=== PATIENT | male | born 1965 | race African-American/Black ===

== ENCOUNTER 2016-07-31 08:35 | Emergency (ER) | payer BC ==
[~2016-07-31] VITALS: Ht 177.8 cm; Wt 86.2 kg
[2016-07-31] MEDS ORDERED: OXYCODONE/APAP 7.5/325 TABLET. PO ONE (09:00)
[2016-07-31] MEDS ORDERED: NAPROXEN 250 MG TABLET PO ONE (09:00)
[2016-07-31] MEDS ORDERED: PENICILLIN V K 250 MG TABLET. PO ONE (09:00)
[2016-07-31] MEDS ORDERED: OXYC-323 PO (09:12)
[2016-07-31] MEDS ORDERED: PENI500T PO (09:12)
[2016-07-31] MEDS ORDERED: NAPR250T2 PO (09:12)
[2016-07-31 09:21] VITALS: BP 132/75
--- NOTE | 2016-07-31 09:54 | ED.ADGEN ---
Past Medical History Past Medical History: No Pertinent History Past Surgical History: Other Additional Past Surgical Histo: right benji femur, left foot pain Alcohol Use: Heavy Drug Use: None Adult General Chief Complaint Chief Complaint: DENTAL PROBLEM HPI HPI Patient is a 51 year old man, with a complaint of left upper jaw pain for the past several days, with development of left-sided facial swelling yesterday and headache today. Patient denies any fevers or chills, any nausea or vomiting, difficulty swallowing or breathing, denies any drainage or bad taste in his mouth. He states that he took Tylenol at home last night, has had no antipyretics or other medications for pain in the past 8 hours. No weakness numbness or tingling, no vision changes, no pain with eye motions, no ear pain. No upper respiratory type symptoms. States that his tetanus status is up-to- date. He did have his wisdom teeth removed. No chest pain, shortness of breath, no nausea or vomiting, no injuries or other complaints. Review of Systems Review of Systems Constitutional: Denies fever or chills. [] Eyes: Denies change in visual acuity. [] HENT: Denies nasal congestion or sore throat. [] Dental pain and swelling. Respiratory: Denies cough or shortness of breath. [] Cardiovascular: Denies chest pain or edema. [] GI: Denies abdominal pain, nausea, vomiting, bloody stools or diarrhea. [] : Denies dysuria. [] Musculoskeletal: Denies back pain or joint pain. [] Integument: Denies rash. [] Neurologic: Denies focal weakness or sensory changes. [] Left-sided headache. Endocrine: Denies polyuria or polydipsia. [] Lymphatic: Denies swollen glands. [] Psychiatric: Denies depression or anxiety. [] Current Medications Current Medications Current Medications Medications (Trade) Dose Ordered Sig/Gabby Start Time Stop Time Status Last Admin Dose Admin Naproxen (Naprosyn) 250 mg 1X ONCE 07/31/16 09:00 07/31/16 09:04 DC 07/31/16 09:09 250 MG Oxycodone/ Acetaminophen (Percocet 7.5/ 325) 1 tab 1X ONCE 07/31/16 09:00 07/31/16 09:04 DC 07/31/16 09:09 1 TAB Penicillin V Potassium (Veetid) 500 mg 1X ONCE 07/31/16 09:00 07/31/16 09:04 DC 07/31/16 09:09 500 MG Allergies Allergies Allergies Coded Allergies Type Severity Reaction Last Updated Verified No Known Drug Allergies 07/31/16 No Physical Exam Physical Exam Constitutional: Well developed, well nourished, no acute distress, non-toxic appearance. [] HENT: Normocephalic, atraumatic, bilateral external ears normal, oropharynx moist, no oral exudates, nose normal. Patient with poor dentition with dental caries throughout, noted to have broken tooth #15, with surrounding soft tissue swelling, no palpable abscess, no evidence of drainage, patient noted to have anterior cervical lymphadenopathy, is expressing tightening of the muscles in the TM region of the left jaw, no other masses other abnormalities identified. No trismus, no brawny edema or swelling of the other mucosa, tongue, or lower jaw involvement, normal phonation. Eyes: PERRLA, EOMI, conjunctiva normal, no discharge. [] Neck: Normal range of motion, no tenderness, supple, no stridor. [] Cardiovascular:Heart rate regular rhythm, no murmur , S1, S2, rubs or gallops. [ ] Lungs & Thorax: Bilateral breath sounds clear to auscultation, no wheezing, rhonchi, rales. No chest tenderness or crepitus. [] Abdomen: Bowel sounds normal, soft, no tenderness, no rebound, rigidity, no guarding, no masses, no pulsatile masses. [] Skin: Warm, dry, no erythema, no rash. [] Back: No tenderness, no CVA tenderness. [] Extremities: No tenderness, no cyanosis, no clubbing, ROM intact, no edema. [] Neurologic: Alert and oriented X 3, normal motor function, normal sensory function, no focal deficits noted. [] Psychologic: Affect normal, judgement normal, mood normal. [] Current Patient Data Vital Signs Vital Signs Date Time Temp Pulse Resp B/P Pulse Ox O2 Delivery O2 Flow Rate FiO2 07/31/16 09:21 68 18 132/75 99 07/31/16 08:48 98.3 Room Air 98.3 EKG EKG Not indicated. [] Radiology/Procedures Radiology/Procedures Not indicated. [] Course & Med Decision Making Course & Med Decision Making Pertinent Labs and Imaging studies reviewed. (See chart for details) Patient's examination is consistent with a dental infection of the left upper jaw, there is no palpable abscess, or area amenable to drainage. Patient does not have any evidence of compromise or impending compromise of the airway or the lower jaw. He has full range of motion of the mouth, no evidence of other areas infection, is afebrile and well-appearing. There is no cellulitis or soft tissue inflammation, patient has palpable lymphadenopathy of the anterior cervical chain, and tightening with some spasm of the muscles of the mastoid. No temporal tenderness. Discussed with patient did require definitive management with oral surgery for removal of this infected tooth, at this time will start him on penicillin VK, Percocet, and naproxen. Patient states understanding with importance of follow-up, given first dose of medications in the ED without issue, as he did not drive to the ED, family member was able to drive him home. He doesn't dental insurance, was given contact information for Dr. Cheema of oral maxillofacial surgery, also given list of available clinic and dental resources in case she has difficulty following up with Dr. Cheema. Patient voiced understanding and agreement with concerning symptoms that would prompt return, and with follow-up plans as stated, discharged home in stable condition having tolerated his oral medications, with prescriptions as stated. Dragon Disclaimer Dragon Disclaimer This electronic medical record was generated, in whole or in part, using a voice recognition dictation system. Departure Impression: Primary Impression: Dental abscess Disposition: HOME, SELF-CARE Condition: IMPROVED Scripts Penicillin V Potassium 500 Mg Tablet1 Tab PO QID #39 TAB One tablet by mouth 4 times daily for the next 10 days, first dose given in the emergency department. Prov:MARIA ISABEL STEVENSON DO 07/31/16 Oxycodone/Apap 5-325 (Percocet 5-325 Mg Tablet)1 Each Tablet1 Tab PO PRN Q6HRS PRN PAIN #14 TAB Ref 0 Prov:MARIA ISABEL STEVENSON DO 07/31/16 Naproxen 250 Mg [id number] Mg PO BID PRN PAIN #10 Prov:MARIA ISABEL STEVENSON DO 07/31/16 MARIA ISABEL STEVENSON DO Jul 31, 2016 09:54
== END 2016-07-31 09:22 | disposition home or self-care (01) ==
LOC: ER 08:35
DX: K04.7 Periapical abscess without sinus (principal); F10.20 Alcohol dependence, uncomplicated
CPT/HCPCS: 99284

== ENCOUNTER 2017-11-14 14:57 | Emergency (ER) | payer SELFPAY, BC | END 2017-11-14 15:42 | disposition home or self-care (01) | LOC: ER 14:57 | DX: H66.91 Otitis media, unspecified, right ear (principal) | CPT/HCPCS: 99283 ==

== ENCOUNTER 2018-06-20 10:06 | Emergency (ER) | payer BC ==
[~2018-06-20] VITALS: Ht 177.8 cm; Wt 88.5 kg
[~2018-06-20 10:06] MED LIST: AMOX875T PO; NAPR250T6 PO; OXYC1TAB15 PO; PENI500T PO
[2018-06-20 10:36] VITALS: BP 119/78
--- NOTE | 2018-06-20 11:35 | RAD ---
Indications: Back pain after bending over to tie shoes. Three-view lumbar spine series: No acute compression fracture or discitis or osteolytic process or anterolisthesis is evident. There is mild degenerative endplate spurring without significant disc space narrowing throughout the lumbar spine. Three-view thoracic spine series: No compression fracture discitis or osteolytic process is evident. IMPRESSION: No acute compression fracture. There is a left midlung zone nodule measuring 2.2 cm in size. It is unchanged in size from a previous chest x-ray dated May 09, 2012 consistent with a benign finding such as a granuloma. Electronically signed by: Jonny Angulo MD (06/20/2018 11:31 AM) [facility]
--- NOTE | 2018-06-20 12:12 | PHYS DOC ---
Past Medical History Past Medical History: No Pertinent History Past Surgical History: Other Additional Past Surgical Histo: right benji femur, left foot pain Alcohol Use: Heavy Drug Use: None Adult General Chief Complaint Chief Complaint: BACK PAIN - NO INJURY [facility] HPI Patient is a 53 year old male who presents with an exacerbation of his chronic back pain 2 days. The patient denies any new injury. He denies dysuria. He states that he has had long-standing back pain. He has not tried over-the- counter medications for this pain. He denies radiation of the pain or paresthesias. He denies spontaneous loss of bowel or bladder, saddle numbness or foot drop. Review of Systems Review of Systems Constitutional: Denies fever or chills [] Respiratory: Denies cough or shortness of breath [] Cardiovascular: No additional information not addressed in HPI [] GI: Denies abdominal pain, nausea, vomiting, bloody stools or diarrhea [] : Denies dysuria or hematuria [] Musculoskeletal: See history of present illness Integument: Denies rash or skin lesions [] Neurologic: Denies headache, focal weakness or sensory changes [] Endocrine: Denies polyuria or polydipsia [] All other systems were reviewed and found to be within normal limits, except as documented in this note. Allergies Allergies Allergies Coded Allergies Type Severity Reaction Last Updated Verified No Known Drug Allergies 07/31/16 No Physical Exam Physical Exam Constitutional: Well developed, well nourished, no acute distress, non-toxic appearance. [] Cardiovascular:Heart rate regular rhythm, no murmur [] Lungs & Thorax: Bilateral breath sounds clear to auscultation [] Abdomen: Bowel sounds normal, soft, no tenderness, no masses, no pulsatile masses. [] Skin: Warm, dry, no erythema, no rash. [] Back: No point spinal tenderness, no CVA tenderness. [] Extremities: No tenderness, no cyanosis, no clubbing, ROM intact, no edema. [] Neurologic: Alert and oriented X 3, normal motor function, normal sensory function, no focal deficits noted. [] Psychologic: Affect normal, judgement normal, mood normal. [] Current Patient Data Vital Signs Vital Signs Date Time Temp Pulse Resp B/P (MAP) Pulse Ox O2 Delivery O2 Flow Rate FiO2 06/20/18 10:36 97.9 67 20 119/78 (92) 98 Room Air 97.9 EKG EKG [] Radiology/Procedures Radiology/Procedures []PATIENT: PERRY BRARACCOUNT: [id number]#: [id number] : 1965 LOCATION: ER AGE: 53 SEX: M EXAM STATUS: REG ER ORD. PHYSICIAN: WAN LU APRN REASON: pain after bending over PROCEDURE: LUMBAR SPINE 2-3V Indications: Back pain after bending over to tie shoes. Three-view lumbar spine series: No acute compression fracture or discitis or osteolytic process or anterolisthesis is evident. There is mild degenerative endplate spurring without significant disc space narrowing throughout the lumbar spine. Three-view thoracic spine series: No compression fracture discitis or osteolytic process is evident. IMPRESSION: No acute compression fracture. There is a left midlung zone nodule measuring 2.2 cm in size. It is unchanged in size from a previous chest x-ray dated May 09, 2012 consistent with a benign finding such as a granuloma. Electronically signed by: Juan Angulo MD (06/20/2018 11:31 AM) [facility] DICTATED and SIGNED BY: JUAN ANGULO MD DATE: 06/20/18 1128 Course & Med Decision Making Course & Med Decision Making Pertinent Labs and Imaging studies reviewed. (See chart for details) []The patient has been given a prescription for Flexeril. He is to take ibuprofen or Tylenol for his pain. He is in agreement with this plan. Dragon Disclaimer Dragon Disclaimer This electronic medical record was generated, in whole or in part, using a voice recognition dictation system. Departure Departure Impression: Primary Impression: Back pain Disposition: 01 HOME, SELF-CARE Condition: STABLE Referrals: NO PCP (PCP) Patient Instructions: Back Pain, Adult Additional Instructions: Take the medication as directed. Do not drive or operate heavy machinery while taking this medication. Follow-up with your primary care provider in 3 days for recheck if not improving or return to the emergency department if worsening. Scripts Cyclobenzaprine Hcl (CYCLOBENZAPRINE HCL) 5 Mg Tablet 1 TAB PO QHS for back strain, #30 TAB Prov: WAN LU APRN 06/20/18 Attending Signature Attending Signature I have reviewed the PA/REPAIR WELDER's note and plan of care. I was available for consultation as needed during the patient's visit in the emergency department. I agree with the clinical impression, plan, and disposition. WAN LU APRN Jun 20, 2018 12:12 STEVEN HENRY DO Jun 21, 2018 13:32
[2018-06-20] MEDS ORDERED: CYCL5TAB PO (12:14)
== END 2018-06-20 12:28 | disposition home or self-care (01) ==
LOC: ER 10:06
DX: G89.29 Other chronic pain (principal); M54.5 Low back pain; M54.6 Pain in thoracic spine; F10.20 Alcohol dependence, uncomplicated; Y90.9 Presence of alcohol in blood, level not specified
CPT/HCPCS: 72072; 72100; 99283

== ENCOUNTER 2019-05-14 04:56 | Emergency (ER) | payer BC ==
[~2019-05-14] VITALS: Ht 177.8 cm; Wt 86.2 kg
[~2019-05-14 04:56] MED LIST changes: +CYCL5TAB PO
[2019-05-14 05:03] VITALS: BP 128/72
--- NOTE | 2019-05-14 05:30 | PHYS DOC ---
Past Medical History Past Medical History: No Pertinent History Past Surgical History: Other Additional Past Surgical Histo: right benji femur, left foot pain Alcohol Use: Heavy Drug Use: None Adult General Chief Complaint Chief Complaint: BACK PAIN OR INJURY HPI HPI 54-year-old male presents to the emergency department with complaints of low back pain. Patient states he was changing a tire yesterday felt back go out. Patient tolerated the pain yesterday because he was washing that she is came however today he states he has to go to work as concerned about the back pain. Patient denies any numbness, tingling, difficulty with urination, difficulty with bowel movements. Movement makes his pain worse. Patient is limited range of motion on examination. Negative straight leg raise. Review of Systems Review of Systems Constitutional: Denies fever or chills [] Respiratory: Denies cough or shortness of breath [] Cardiovascular: No additional information not addressed in HPI [] GI: Denies abdominal pain, nausea, vomiting, bloody stools or diarrhea [] : Denies dysuria or hematuria [] Musculoskeletal: low back pain Neurologic: Denies headache, focal weakness or sensory changes [] All other systems were reviewed and found to be within normal limits, except as documented in this note. Current Medications Current Medications Current Medications Medications (Trade) Dose Ordered Sig/Gabby Start Time Stop Time Status Last Admin Dose Admin Ketorolac Tromethamine (Toradol Im) 60 mg 1X ONCE 05/14/19 05:45 05/14/19 05:46 Orphenadrine Citrate (Norflex) 60 mg 1X ONCE 05/14/19 05:45 05/14/19 05:46 Allergies Allergies Allergies Coded Allergies Type Severity Reaction Last Updated Verified No Known Drug Allergies 07/31/16 No Physical Exam Physical Exam Constitutional: Well developed, well nourished, no acute distress, non-toxic appearance. [] HENT: Normocephalic, atraumatic, bilateral external ears normal, oropharynx moist, no oral exudates, nose normal. [] Eyes: PERRLA, EOMI, conjunctiva normal, no discharge. [] Neck: Normal range of motion, no tenderness, supple, no stridor. [] Cardiovascular:Heart rate regular rhythm, no murmur [] Lungs & Thorax: Bilateral breath sounds clear to auscultation [] Abdomen: Bowel sounds normal, soft, no tenderness, no masses, no pulsatile masses. [] Skin: Warm, dry, no erythema, no rash. [] Back: mild midline and paraspinous tenderness, limited ROM 2/2 pain[] Extremities: No tenderness, no edema. [] Neurologic: Alert and oriented X 3, no focal deficits noted. [] Psychologic: Affect normal, judgement normal, mood normal. [] Current Patient Data Vital Signs Vital Signs Date Time Temp Pulse Resp B/P (MAP) Pulse Ox O2 Delivery O2 Flow Rate FiO2 05/14/19 05:03 98.2 82 14 128/72 (90) 97 Room Air 98.2 EKG EKG [] Radiology/Procedures Radiology/Procedures [facility] [address] [place] [address] IMAGING REPORT Signed PATIENT: PERRY BRAR ACCOUNT: [id number] : 1965 LOCATION: ER AGE: 54 SEX: M EXAM STATUS: REG ER ORD. PHYSICIAN: ARLET CEDILLO MD REASON: low back pain PROCEDURE: LUMBAR SPINE 2-3V Lumbar spine 3 views. HISTORY: Low back pain 3 views were taken of the lumbar spine. Spine is in normal alignment. Disc spaces are normal in height. There is minimal hypertrophic change. There is no acute fracture. IMPRESSION: 1. Minimal hypertrophic changes otherwise negative lumbar spine. Electronically signed by: Melvin Morris MD (05/14/2019 5:38 AM) [facility] DICTATED and SIGNED BY: MELVIN MORRIS MD DATE: 05/14/19 0538 [] Course & Med Decision Making Course & Med Decision Making Pertinent Labs and Imaging studies reviewed. (See chart for details) []54-year-old male presents to the emergency department with complaints of low back pain. Patient states he was changing a tire yesterday felt back go out. Patient tolerated the pain yesterday because he was washing that she is came however today he states he has to go to work as concerned about the back pain. Patient denies any numbness, tingling, difficulty with urination, difficulty with bowel movements. Movement makes his pain worse. Patient is limited range of motion on examination. Negative straight leg raise. Dragon Disclaimer Dragon Disclaimer This electronic medical record was generated, in whole or in part, using a voice recognition dictation system. Departure Departure Impression: Primary Impression: Lumbar strain Disposition: 01 HOME, SELF-CARE Condition: STABLE Referrals: NO PCP (PCP) Patient Instructions: Back Pain, Adult, [id number] Additional Instructions: Recommend follow up with PCP 3 - 5 days Return to the ER with worsening symptoms, intractable pain, fever, altered mental status Tylenol/Motrin as needed for pain Take medications as directed Scripts Tramadol Hcl (ULTRAM) 50 Mg Tablet 50 MG PO Q6HRS PRN for PAIN for 5 Days, #20 TAB 0 Refills Prov: ARLET CEDILLO MD 05/14/19 Cyclobenzaprine Hcl (CYCLOBENZAPRINE HCL) 10 Mg Tablet 1 TAB PO TID PRN for MUSCLE SPASMS, #30 TAB Prov: ARLET CEDILLO MD 05/14/19 Problem Qualifiers Primary Impression: Lumbar strain Encounter type: initial encounter Qualified Codes: S39.012A - Strain of muscle, fascia and tendon of lower back, initial encounter ARLET CEDILLO MD May 14, 2019 05:30
--- NOTE | 2019-05-14 05:40 | RAD ---
Lumbar spine 3 views. HISTORY: Low back pain 3 views were taken of the lumbar spine. Spine is in normal alignment. Disc spaces are normal in height. There is minimal hypertrophic change. There is no acute fracture. IMPRESSION: 1. Minimal hypertrophic changes otherwise negative lumbar spine. Electronically signed by: Melvin Robertson MD (05/14/2019 5:38 AM) [facility]
[2019-05-14] MEDS ORDERED: ORPHENADRINE CITRATE 60 MG/2 ML VIAL. IM ONE (05:45)
[2019-05-14] MEDS ORDERED: KETOROLAC 60 MG/2 ML VIAL. IM ONE (05:45)
[2019-05-14] MEDS ORDERED: TRAM-48 PO (05:48)
[2019-05-14] MEDS ORDERED: CYCL10TA2 PO (05:48)
== END 2019-05-14 06:25 | disposition home or self-care (01) ==
LOC: ER 04:56
DX: S39.012A Strain of muscle, fascia and tendon of lower back, initial encounter (principal); F10.20 Alcohol dependence, uncomplicated; Y90.9 Presence of alcohol in blood, level not specified; X50.9XXA Other and unspecified overexertion or strenuous movements or postures, initial encounter; Y93.89 Activity, other specified; Y92.89 Other specified places as the place of occurrence of the external cause; Y99.8 Other external cause status
CPT/HCPCS: 72100; 96372; 99284; J1885; J2360

== ENCOUNTER 2019-08-14 09:00 | Emergency (ER) | payer BC ==
[~2019-08-14] VITALS: Ht 177.8 cm; Wt 85.9 kg
[~2019-08-14 09:00] MED LIST changes: +CYCL10TA2 PO; +TRAM-48 PO
[2019-08-14 09:40] VITALS: BP 147/75
--- NOTE | 2019-08-14 09:48 | PHYS DOC ---
Past Medical History Past Medical History: No Pertinent History Past Surgical History: Other Additional Past Surgical Histo: right benji femur, left foot pain Alcohol Use: Heavy Drug Use: None Adult General Chief Complaint Chief Complaint: FOOT INJURY PAIN [facility] HPI Patient is a 54 year old male who presents with left heel pain has been ongoing for month and a half. The patient states he had surgery on the area that hurts 10 years ago. 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 He states he is on his feet quite a bit at his new job. He states it is also extremely cold inside the building he works we will wears multiple pairs of socks. He denies any pain while sitting but states he has pain when ambulating. Denies additional complaints. Complete ROS were reviewed and found to be within normal limits, except as documented in the [facility] Allergies Allergies Allergies Coded Allergies Type Severity Reaction Last Updated Verified No Known Drug Allergies 07/31/16 No Physical Exam Physical Exam Constitutional: Well developed, well nourished, no acute distress, non-toxic appearance. [] HENT: Normocephalic, atraumatic, bilateral external ears normal, oropharynx moist, no oral exudates, nose normal. [] Eyes: PERRLA, EOMI, conjunctiva normal, no discharge. [] Skin: Warm, dry, no erythema, no rash. [] Back: No tenderness, no CVA tenderness. [] Extremities: Tenderness on palpation to posterior heel and to plantar heel. Neurologic: Alert and oriented X 3, normal motor function, normal sensory function, no focal deficits noted. [] Psychologic: Affect normal, judgement normal, mood normal. [] Current Patient Data Vital Signs Vital Signs Date Time Temp Pulse Resp B/P (MAP) Pulse Ox O2 Delivery O2 Flow Rate FiO2 08/14/19 09:40 98.7 60 20 147/75 (99) 100 Room Air 98.7 EKG EKG [] Radiology/Procedures Radiology/Procedures [][facility] [address] [place] [address] IMAGING REPORT Signed PATIENT: PERRY BRAR ACCOUNT: [id number] : 1965 LOCATION: ER AGE: 54 SEX: M EXAM STATUS: REG ER ORD. PHYSICIAN: STEVEN RAMOS APRN REASON: heel pain when walking, forklift injury approx 10 yr ago PROCEDURE: FOOT LEFT 3V FOOT LEFT 3V 08/14/2019 9:43 AM INDICATION: Heel pain when walking. Forklift injury 10 years ago. COMPARISON: None available. TECHNIQUE: 3 views of the left foot are provided. FINDINGS/ IMPRESSION: There is no acute fracture or dislocation. Joint spaces are maintained. Bone mineralization is within normal limits. Regional soft tissues are within normal limits. There is no soft tissue gas or osseous erosion. No radiopaque foreign body. Plantar calcaneal enthesophyte present. Nonspecific patchy sclerosis noted within the medullary space of the distal tibia which could reflect an area of bone infarct. Electronically signed by: Heather Shell MD (08/14/2019 10:03 AM) [id number] DICTATED and SIGNED BY: HEATHER SHELL MD DATE: 08/14/19 1003 Course & Med Decision Making Course & Med Decision Making Pertinent Labs and Imaging studies reviewed. (See chart for details) Will get imaging. FINDINGS/ IMPRESSION: There is no acute fracture or dislocation. Joint spaces are maintained. Bone mineralization is within normal limits. Regional soft tissues are within normal limits. There is no soft tissue gas or osseous erosion. No radiopaque foreign body. Plantar calcaneal enthesophyte present. Nonspecific patchy sclerosis noted within the medullary space of the distal tibia which could reflect an area of bone infarct. Electronically signed by: Heather Shell MD (08/14/2019 10:03 AM) [id number] Dragon Disclaimer Dragon Disclaimer This electronic medical record was generated, in whole or in part, using a voice recognition dictation system. Departure Departure Impression: Primary Impression: Pain of left heel Disposition: 01 HOME, SELF-CARE Condition: STABLE Referrals: NO PCP (PCP) PERRY CONLEY MD Additional Instructions: Thank you for visiting [facility]. We appreciate you trusting us with your care. If any additional problems come up don't hesitate to return to visit us. Please follow up with your primary care provider so they can plan additional care if needed and know about the problem that you had. If symptoms worsen come back to the Emergency Department. Any concerning symptoms that start such as chest pain, shortness of air, weakness or numbness on one side of the body, running high fevers or any other concerning symptoms return to the ER. Please follow up with orthopedics. STEVEN RAMOS APRN Aug 14, 2019 09:48
--- NOTE | 2019-08-14 10:06 | RAD ---
FOOT LEFT 3V 08/14/2019 9:43 AM INDICATION: Heel pain when walking. Forklift injury 10 years ago. COMPARISON: None available. TECHNIQUE: 3 views of the left foot are provided. FINDINGS/ IMPRESSION: There is no acute fracture or dislocation. Joint spaces are maintained. Bone mineralization is within normal limits. Regional soft tissues are within normal limits. There is no soft tissue gas or osseous erosion. No radiopaque foreign body. Plantar calcaneal enthesophyte present. Nonspecific patchy sclerosis noted within the medullary space of the distal tibia which could reflect an area of bone infarct. Electronically signed by: Syl Cramer MD (08/14/2019 10:03 AM) [id number]
== END 2019-08-14 11:01 | disposition home or self-care (01) ==
LOC: ER 09:00
DX: M79.672 Pain in left foot (principal); F10.10 Alcohol abuse, uncomplicated; Z98.890 Other specified postprocedural states
CPT/HCPCS: 73630; 99284

== ENCOUNTER 2020-10-22 05:28 | Emergency (ER) | payer BC ==
[~2020-10-22] VITALS: Ht 177.8 cm; Wt 86.3 kg
[~2020-10-22 05:28] MED LIST changes: +NAPR-699 PO; -NAPR250T6 PO
[2020-10-22 05:45] VITALS: BP 157/94
--- NOTE | 2020-10-22 07:24 | RAD ---
Cervical spine x-rays 3 views HISTORY: Neck pain for one week no injury. FINDINGS: Cervical vertebral body height and alignment intact. No prevertebral soft tissue swelling. Mild disc height loss and prominent disc osteophytes at C5-C6 and C6-C7. Very mild anterior disc oste ophyte at C4-C5, disc height preserved. There is slight scoliosis of the craniocervical junction may be positional, due to muscle spasm or could be chronic. C2 odontoid intact. No fracture evident. IMPRESSION: Sequela of cervical degenerative disc disease as described above. Right shoulder AP and scapular x-rays 3 views HISTORY: Right shoulder pain for one week no injury. FINDINGS: No fracture. No dislocation. No lytic or sclerotic bone lesion. There is mild acromion bone spurring at the acromioclavicular joint on the scapular Y view. IMPRESSION: No acute osseous injury. Mild bone spurring of the acromion. Electronically signed by: Robin Ayala MD (10/22/2020 7:22 AM) [id number]
[2020-10-22] MEDS: KETOROLAC 60 MG/2 ML VIAL. IM ONE (07:40)
[2020-10-22] MEDS: methylPREDNISolone SOD SUCC PF 125 MG/2 ML VIAL. IM ONE (07:40)
[2020-10-22] MEDS ORDERED: PRED20TA PO (07:46)
[2020-10-22] MEDS ORDERED: NAPR-682 PO (07:46)
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
== END 2020-10-22 08:27 | disposition home or self-care (01) ==
LOC: ER 05:28
DX: M47.812 Spondylosis without myelopathy or radiculopathy, cervical region (principal); M75.91 Shoulder lesion, unspecified, right shoulder; F17.200 Nicotine dependence, unspecified, uncomplicated; F10.20 Alcohol dependence, uncomplicated; Y90.1 Blood alcohol level of 20-39 mg/100 ml
CPT/HCPCS: 72040; 73030; 96372; 99284; J1885; J2930

== ENCOUNTER → 2020-12-05 | Day surgery (SDC) | payer BC ==
[~2020-12-05] VITALS: Ht 175.3 cm; Wt 185.0 kg
[~2020-12-05] MED LIST changes: +GLYCOPYRROLATE 1 MG/5 ML VIAL. ONE; +IV RINGERS,LACTATED 1000ML 1,000 ML IV SCH; +LIDOCAINE 2% PF 5 ML VIAL. ONE; +NAPR-682 PO; +PRED20TA PO; +PROPOFOL 10 MG/ML (20ML) VIAL. IV ONE
[2020-12-05 08:25] VITALS: BP 124/77
[2020-12-05 09:44] VITALS: BP 116/83
--- NOTE | 2020-12-05 15:02 | CONS ---
DATE OF CONSULTATION: 12/05/2020 GASTROENTEROLOGY CONSULTATION REASON FOR CONSULTATION: Colorectal screening. HISTORY OF PRESENT ILLNESS: A 55-year-old -[place] male with past medical history significant for femur fracture, requiring benji placement, is seen for a screening colon exam. Bowel habits are regular without diarrhea or constipation. There has been no melena and/or hematochezia. Weight and appetite are stable. He is otherwise without additional complaints. PAST MEDICAL HISTORY: Status post femur fracture. ALLERGIES: None. MEDICATIONS: None. FAMILY HISTORY: Mother had both ovarian cancer as well as colon cancer. SOCIAL HISTORY: He is a smoker and drinker. REVIEW OF SYSTEMS: HEENT: There is no decreasing or visual acuity issues. CARDIOVASCULAR: No history of hypertension, palpitations or syncope. PULMONARY: There is history of tobaccoism. NEUROLOGIC: No stroke, migraine, neuropathy. PSYCHIATRIC: No mood swings, depression, insomnia. HEMATOLOGIC: No bleeding, bruising, coagulopathy. RENAL: No dysuria, frequency, hematuria. MUSCULOSKELETAL: History of a femur fracture. GASTROINTESTINAL: See history of present illness. DERMATOLOGIC: No skin rashes or pruritus. ENDOCRINE: No history of heat or cold or thyroid disease. PHYSICAL EXAMINATION: GENERAL: Reveals a well-nourished, well-developed -[place]ian male who is alert, cooperative, in no acute distress. VITAL SIGNS: Temperature 97.2, pulse 67, respiration 20. LUNGS: Clear. CARDIOVASCULAR: Reveals an S1, S2, without S3, S4 or appreciable murmur. ABDOMEN: Reveals a soft abdomen, normal bowel sounds, without appreciable hepatosplenomegaly. IMPRESSION: Colorectal screening is warranted at this time. Risks and benefits of procedure including risk of hemorrhage and perforation during the operation have been discussed. The patient is willing to proceed. I would like to thank Dr. Osman for allowing us to consult and participate in this patient's care. [facility] DR: Annie TID: [id number] CC: Dawson
== END | disposition home or self-care (01) ==
LOC: ENDOS 07:49
PROVIDERS: ATTEND Internal Medicine Gastroenterology
DX: Z12.11 Encounter for screening for malignant neoplasm of colon (principal); K64.0 First degree hemorrhoids; K57.30 Diverticulosis of large intestine without perforation or abscess without bleeding; K63.89 Other specified diseases of intestine; M19.90 Unspecified osteoarthritis, unspecified site; G47.30 Sleep apnea, unspecified; F17.210 Nicotine dependence, cigarettes, uncomplicated; Z72.89 Other problems related to lifestyle; Z79.899 Other long term (current) drug therapy; Z98.890 Other specified postprocedural states; Z20.822 Contact with and (suspected) exposure to COVID-19
CPT/HCPCS: 45378; 87426; J2704; J3490

== ENCOUNTER 2021-02-18 21:27 | Emergency (ER) | payer BC ==
[~2021-02-18 21:27] MED LIST changes: -GLYCOPYRROLATE 1 MG/5 ML VIAL. ONE; -IV RINGERS,LACTATED 1000ML 1,000 ML IV SCH; -LIDOCAINE 2% PF 5 ML VIAL. ONE; -PROPOFOL 10 MG/ML (20ML) VIAL. IV ONE
[2021-02-18 21:31] VITALS: BP 122/74
== END 2021-02-18 21:35 | disposition left against medical advice (07) ==
LOC: ER 21:27
DX: L29.8 Other pruritus (principal); Z53.21 Procedure and treatment not carried out due to patient leaving prior to being seen by health care provider

== ENCOUNTER 2021-03-11 18:40 | Emergency (ER) | payer BC | END 2021-03-12 01:42 | disposition left against medical advice (07) | LOC: ER 18:40 | DX: K08.89 Other specified disorders of teeth and supporting structures (principal); Z53.21 Procedure and treatment not carried out due to patient leaving prior to being seen by health care provider ==